=== PATIENT | male | born 1945 | race Caucasian/White ===

== ENCOUNTER → 2019-09-16 | Day surgery (SDC) | payer MEDICARE, OTHER ==
[2019-09-12 12:42] LABS: BASOPHILS % 0.4 % (0.0-1.0); EOSINOPHILS # (AUTO) 0.2 (0.0-0.4); EOSINOPHILS % 2.9 % (0.0-6.0); HEMATOCRIT 45.5 % (38.2-49.6); HEMOGLOBIN 14.8 g/dL (14.0-18.0); LYMPHOCYTES # (AUTO) 1.5 (1.0-3.2); LYMPHOCYTES % 21.8 % (18.0-39.1); MEAN CORPUSCULAR HEMOGLOBIN 30.3 pg (28-32); MEAN CORPUSCULAR HGB CONC 32.5 g/dL (31-35); MONOCYTES # (AUTO) 0.6 (0.2-0.8); MONOCYTES % 7.9 % (4.4-11.3); NEUTROPHILS # (AUTO) 4.7 (2.1-6.9); NEUTROPHILS % 66.7 % (38.7-80.0); PLATELET COUNT 210 x10e3/uL (140-360); RED BLOOD COUNT 4.89 x10e6/uL (4.3-5.7); RED CELL DISTRIBUTION WIDTH 12.1 % (11.7-14.4)
[2019-09-12 13:07] LABS: ALBUMIN 4.6 g/dL (3.5-5.0); ALBUMIN/GLOBULIN RATIO 1.7 (0.8-2.0); ANION GAP 11.6 mmol/L (8-16); CREATININE, SERUM 1.26 mg/dL (0.72-1.25); POTASSIUM 4.6 mmol/L (3.5-5.1)
--- NOTE | 2019-09-13 17:51 | NUR ---
3657p Phone interview completed.Pt denies any symptoms of CoviD aware of self quarantine till procedural date. To arrive at 1100AM on 15 September. Covid results still pending. 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 ds/rn
[2019-09-16] VITALS (13 sets, daily range): BP systolic 102–167; BP diastolic 57–78
[~2019-09-16] VITALS: Ht 177.8 cm; Wt 96.6 kg
[~2019-09-16] MED LIST: ALPRAZOLAM 0.5 MG TAB ONE; ASPIRIN 325 MG TAB ONE; ATENOLOL50 MG PO; BIVALRIUDIN 250 MG/VIAL VIAL IV ONE; DIPHENHYDRAMINE HCL 25 MG CAP ONE; FENTANYL CITRATE/PF 100MCG/2 ML INJ ONE; HEPARIN SOD (PORCINE) 1000 UNIT/ML 30ML ONE; HEPARIN SOD/SOD CHLORIDE 2,000 ML ONE; IOPAMIDOL 370 MG/ML 200 ML INFUS..BTL INJ ONE; LIDOCAINE HCL 2% LOCAL 20 ML VIAL ONE; LISINOPRIL5 MG; MIDAZOLAM HCL 2 MG/2 ML VIAL ONE; NITROGLYCERIN/D5W 200 MCG/ML 250 ML ONE; PRASUGREL 10 MG TAB ONE; SIMVASTATIN20 MG PO; SODIUM CHLORIDE 0.9% 1000ML 1,000 ML ONE; SODIUM CHLORIDE 0.9% 50ML 50 ML ONE; SYNTHROID25 MCG PO; VERAPAMIL HCL 2.5 MG/ML 2 ML VIAL ONE; XARELTO20 MG PO
--- NOTE | 2019-09-16 11:20 | NUR ---
1120a in CCL#9,Identiferx2, prepped for procedure. Alert oriented and appropriate, PERRLA, respirations even and unlabored to room air. Pulses x4 extremities equal . Pedal pulses PT/DP present/palpable and marked. Cap fill brisk < 3 sec. bilateral feet semi cool and pale. LHC for abnormal Stress Test. Skin warm and dry integrity appears intact in general. IV left hand #20 x1,started and presents healthy w/o s/s of infiltration or complaint. NS 0.9% started at 100ml/hr per dial flow. Abdomen soft and supple. pt offered toileting, denies need to urinate or defecate. Personal affects with patient. Family at bedside. Teressa. Pt and family verbalizes understanding of POC.Prepped and ready. Stable vs No Cp or SOB. Handoff to Osvaldo RN Denies c/o ds/rn
--- NOTE | 2019-09-16 11:57 | NUR ---
1140a preop given pt aware to ask for assistance bed in low position,call light at bs at bedside ds/rn
--- NOTE | 2019-09-16 13:45 | NUR ---
1345pm RECEIVING NOTE [facility]............................................................... Bedside report received from Keo BRADLEY. Identifierx2. Alert oriented and appropriate, PERRLA, respirations even and unlabored to room air. Pulses x4 extremities equal and strong. Pedal pulses PT/DP X4 and marked. Cap fill brisk < 3 sec. Rt Tr band intact NO gross issues pain pallor pressure or dysrhythmia. Skin warm and dry integrity appears D/I. IV 20g to left hand at 100cchr via controller, presents healthy w/o s/s of infiltration or complaint. Abdomen soft and supple. pt offered toileting, denies need to urinate or defecate. No personal affects with patient. Family at bedside. Pt and family verbalizes understanding of POC. TR band down at 1630 and dc home at 1800pm with occupance. Currently w/o complaint of pain or need. ds/aubrie
--- NOTE | 2019-09-16 16:30 | NUR ---
1630p RADIAL Compression removal: Initial Cuff volume 12 cc 1630p -2cc Removed No hematoma/bleeding noted with normal neurovascular function. 1645p -5cc Removed No hematoma/ bleeding noted with normal neurovascular function. 1700p -5cc Removed No hematoma/bleeding noted with normal neurovascular function. Air removal completed. Stasis achieved sterile 2x2,Tegaderm, Coban dressing No hematoma, bleeding noted with normal neurovascular function. Wrist splint in place. Pt instructed on POC. Ds/Rn
--- NOTE | 2019-09-16 18:00 | NUR ---
1800p Pt meets DC criteria. Rt arm assessed for s/s of complication and presence of hematoma. Skin warm, dry, no discolor, and pulses present. IV removed from left hand. Distal tip appears intact. VS WNL. Pt denies pain, sob, or need at this time. Family at bedside. Review of discharge paperwork and follow up instructions. verbalized understanding. Pt to wheelchair and transported to front of hospital. Transferred to private vehicle under own strength w/o incident with DC paperwork in hand. - ds/rn
--- NOTE | 2019-09-16 18:45 | Operative Report ---
DATE OF PROCEDURE: 09/16/2019 SURGEON: Pradip Chadwick MD INDICATIONS: Coronary artery disease, angina, and abnormal stress test. PROCEDURES PERFORMED: 1. Left heart catheterization, selective coronary angiography. 2. Ultrasound-guided access in the right radial artery. 3. Deployment of right wrist TR band. 4. Conscious sedation, 65 minutes. 5. Stent placement to the mid right coronary artery. COMPLICATIONS: None. BLOOD LOSS: Minimal. RECOMMENDATIONS: Staged intervention of the left anterior descending artery. DESCRIPTION OF PROCEDURE: Access obtained in the right radial artery. Using ultrasound guidance, a 6-Brazilian sheath was placed. The patient received intravenous Angiomax, oral prasugrel, and aspirin for anticoagulation. Left main, no disease. Left anterior descending artery, mid 70% stenosis. Circumflex, mild disease. Right coronary artery, mid 90%, distal 50%. LV end-diastolic pressure was normal. A decision was made to intervene on the right coronary artery. The right coronary artery is cannulated using a JR4 6-Brazilian guiding catheter. Short Runthrough wire was advanced for support. Primary stent 2.75 x 16 mm Synergy stent deployed at 18 atmospheres, excellent end result, less than 10% residual stenosis, ADRIEL 3 flow. No complications. Wire and guide sheath removed. TR band applied. The patient discharged home the same day. Pradip Chadwick MD K[facility]/MODL /[id number]
== END | disposition home or self-care (01) ==
LOC: CATH LAB 10:40
PROVIDERS: ATTEND Internal Medicine Interventional Cardiology
DX: I20.8 Other forms of angina pectoris (principal); I48.0 Paroxysmal atrial fibrillation; Z79.01 Long term (current) use of anticoagulants; E78.5 Hyperlipidemia, unspecified; I10 Essential (primary) hypertension; I83.93 Asymptomatic varicose veins of bilateral lower extremities; Z11.59 Encounter for screening for other viral diseases
CPT/HCPCS: 76937; 93454; C9600; 36415; 80053; 85025; 92928; 99152; 99153; C1769; C1874; C1887; J0583; J1644; J2001; J2250; J3010; J7030; Q9967; U0002

== ENCOUNTER 2024-01-11 07:06 | Emergency (ER) | payer MEDICARE ==
[~2024-01-11] VITALS: Ht 177.8 cm; Wt 96.6 kg
[~2024-01-11 07:06] MED LIST changes: -ALPRAZOLAM 0.5 MG TAB ONE; -ASPIRIN 325 MG TAB ONE; -BIVALRIUDIN 250 MG/VIAL VIAL IV ONE; -DIPHENHYDRAMINE HCL 25 MG CAP ONE; -FENTANYL CITRATE/PF 100MCG/2 ML INJ ONE; -HEPARIN SOD (PORCINE) 1000 UNIT/ML 30ML ONE; -HEPARIN SOD/SOD CHLORIDE 2,000 ML ONE; -IOPAMIDOL 370 MG/ML 200 ML INFUS..BTL INJ ONE; -LIDOCAINE HCL 2% LOCAL 20 ML VIAL ONE; -MIDAZOLAM HCL 2 MG/2 ML VIAL ONE; -NITROGLYCERIN/D5W 200 MCG/ML 250 ML ONE; -PRASUGREL 10 MG TAB ONE; -SODIUM CHLORIDE 0.9% 1000ML 1,000 ML ONE; -SODIUM CHLORIDE 0.9% 50ML 50 ML ONE; -VERAPAMIL HCL 2.5 MG/ML 2 ML VIAL ONE
[2024-01-11] MEDS: CYCLOBENZAPRINE HCL 10 MG TAB PO ONE (08:11)
[2024-01-11] MEDS: IBUPROFEN 600 MG TAB PO STA (08:11)
[2024-01-11 08:14] VITALS: PULSE 95; RESP 18; TEMP 97.5; O2SAT 99
[2024-01-11] MEDS ORDERED: CYCLOBENZAPRINE10 MG PO (08:22)
== END 2024-01-11 08:30 | disposition home or self-care (01) ==
LOC: ER 07:31
DX: M51.16 Intervertebral disc disorders with radiculopathy, lumbar region (principal); E78.00 Pure hypercholesterolemia, unspecified
CPT/HCPCS: 72131; 99283

== ENCOUNTER 2024-02-04 05:28 | Observation (INO) | payer MEDICARE ==
[2024-02-02 12:30] LABS: BASOPHILS % 0.4 % (0.0-1.0); EOSINOPHILS # (AUTO) 0.3 (0.0-0.4); EOSINOPHILS % 3.8 % (0.0-6.0); HEMATOCRIT 44.1 % (38.2-49.6); HEMOGLOBIN 14.1 g/dL (14.0-18.0); LYMPHOCYTES # (AUTO) 1.6 (1.0-3.2); LYMPHOCYTES % 20.6 % (18.0-39.1); MEAN CORPUSCULAR VOLUME 96.9 fL (81-99); MONOCYTES # (AUTO) 0.6 (0.2-0.8); MONOCYTES % 7.2 % (4.4-11.3); NEUTROPHILS # (AUTO) 5.3 (2.1-6.9); NEUTROPHILS % 67.7 % (38.7-80.0); PLATELET COUNT 216 x10e3/uL (140-360); RED BLOOD COUNT 4.55 x10e6/uL (4.3-5.7); WHITE BLOOD COUNT 7.83 x10e3/uL (4.8-10.8)
[2024-02-02 12:45] LABS: INR 1.39; PROTHROMBIN TIME 17.8 seconds (11.9-14.5)
[2024-02-02 12:46] LABS: PARTIAL THROMBOPLASTIN TIME 45.8 seconds (23.8-35.5)
[2024-02-02 12:52] LABS: CALCIUM 10.3 mg/dL (8.4-10.2); CREATININE, SERUM 1.22 mg/dL (0.72-1.25)
[2024-02-03 10:37] LABS: INR 0.98; PROTHROMBIN TIME 13.6 seconds (11.9-14.5)
[2024-02-03 10:38] LABS: PARTIAL THROMBOPLASTIN TIME 26.9 seconds (23.8-35.5)
[~2024-02-04] VITALS: Ht 177.8 cm; Wt 97.5 kg
[~2024-02-04 05:28] MED LIST changes: +ASPIRIN81 MG PO; +CYCLOBENZAPRINE10 MG PO; +IBUPROFEN600 MG PO; +LIPITOR10 MG PO; +METFORMIN HCL500 MG PO; +METOPROLOL SUCC25 MG PO; +MULTI-VITAMIN1 EACH PO
[2024-02-04] MEDS: LACTATED RINGER'S 1,000 ML ONE (06:08)
[2024-02-04] MEDS: CEFAZOLIN SODIUM 2 GM ONE (06:08)
[2024-02-04] MEDS ORDERED: LIDOCAINE HCL 2% LOCAL INJ 5 ML SDV VIAL INJ ONE (07:09)
[2024-02-04] MEDS ORDERED: FENTANYL CITRATE/PF 100MCG/2 ML INJ ONE (07:09)
[2024-02-04] MEDS ORDERED: ROCURONIUM BROMIDE 1 ML IV ONE (07:09)
[2024-02-04] MEDS ORDERED: KETAMINE 50MG/5ML SYR ONE (07:10)
[2024-02-04] MEDS ORDERED: SEVOFLURANE INHAL SOLN 250 ML PEN BTL ONE (07:10)
[2024-02-04] MEDS ORDERED: PROPOFOL IV EMULSION 10 MG/ML 20 ML VIAL ONE (07:10)
[2024-02-04] MEDS ORDERED: ACETAMINOPHEN 1000 MG/100 ML 100 ML IV ONE (07:10)
[2024-02-04] MEDS ORDERED: DEXAMETHASONE SOD PHOS INJ 4 MG/ML SDV ONE (08:26)
[2024-02-04] MEDS ORDERED: ONDANSETRON HCL INJ 2MG/ML 2ML 2 MG/ML VIAL ONE (08:26)
[2024-02-04] MEDS ORDERED: SUGAMMADEX SODIUM 200 MG/2 ML VIAL IV ONE (08:48)
[2024-02-04] MEDS ORDERED: LACTATED RINGER'S 1,000 ML ONE (09:08)
[2024-02-04] MEDS ORDERED: PHENYLEPHRINE HCL 1% 10 MG/ML VIAL ONE (09:09)
[2024-02-04] MEDS ORDERED: SODIUM CHLORIDE 0.9% 100 ML ONE (09:10)
[2024-02-04] MEDS ORDERED: HYDROCODON-ACE1 EA12 PO (09:57)
[2024-02-04] MEDS ORDERED: PROMETHAZINE HCL (IM) 25 MG/ML VIAL IM PRN (10:00)
[2024-02-04] MEDS ORDERED: ONDANSETRON HCL INJ 2MG/ML 2ML 2 MG/ML VIAL IV PRN (10:00)
[2024-02-04] MEDS ORDERED: HYDROMORPHONE 2MG/ML IV PRN (10:00)
[2024-02-04] MEDS: FENTANYL CITRATE/PF 100MCG/2 ML INJ ONE (10:00)
[2024-02-04] MEDS ORDERED: MORPHINE SULFATE 5 MG/ML VIAL IM PRN (10:00)
[2024-02-04] MEDS ORDERED: ACETAMINOPHEN 325 MG TAB PO PRN (10:00)
[2024-02-04] MEDS ORDERED: CARISOPRODOL 350 MG TAB PO PRN (10:00)
[2024-02-04] MEDS ORDERED: MAGNESIUM/ALUMINUM/SIMETHICONE 30 ML UDC PO PRN (10:00)
[2024-02-04] MEDS: HYDROMORPHONE 1MG/1ML INJ ONE (10:11)
[2024-02-04 11:20] VITALS: BP 152/83; PULSE 88; RESP 18; TEMP 98.2; O2SAT 97
[2024-02-04] MEDS: OXYCODONE/ACETAMINOPHEN 5-325 1 EACH TABLET PO PRN (11:52)
[2024-02-04] MEDS: LACTATED RINGER'S 1,000 ML IV SCH (11:52)
[2024-02-04 15:10] VITALS: BP 153/86; PULSE 108; RESP 19; TEMP 98.2; O2SAT 96
[2024-02-04] MEDS: IBUPROFEN 600 MG TAB PO SCH (16:07)
[2024-02-04] MEDS: METFORMIN HCL 500 MG TAB PO SCH (16:07)
[2024-02-04] MEDS: ATORVASTATIN 40 MG TAB PO SCH (20:50)
[2024-02-04] MEDS: CYCLOBENZAPRINE HCL 10 MG TAB PO PRN (20:55)
[2024-02-04] MEDS: ZOLPIDEM TARTRATE 5 MG TAB PO PRN (23:42)
[2024-02-05] MEDS: LEVOTHYROXINE SODIUM 25 MCG TABLET PO SCH (06:11)
[2024-02-05 08:00] VITALS: BP 146/77; PULSE 101; RESP 17; TEMP 97.6; O2SAT 98
[2024-02-05] MEDS ORDERED: ONDANSETRON HCL 4 MG ORAL DISINTEGRATING TAB PO PRN (08:15)
[2024-02-05] MEDS: MULTIVITAMINS/MINERALS TAB PO SCH (09:16)
[2024-02-05 09:17] VITALS: BP 146/77; PULSE 101
[2024-02-05] MEDS: METOPROLOL SUCCINATE 25 MG TAB XL PO SCH (09:17)
== END 2024-02-05 10:17 | disposition home or self-care (01) ==
LOC: OR 05:28 → PACU V 09:56 → MED/SURG 11:05
PROVIDERS: ADMIT Neurological Surgery; ATTEND Neurological Surgery
DX: M48.062 Spinal stenosis, lumbar region with neurogenic claudication (principal); I10 Essential (primary) hypertension; E78.5 Hyperlipidemia, unspecified; I25.10 Atherosclerotic heart disease of native coronary artery without angina pectoris; Z95.5 Presence of coronary angioplasty implant and graft; I48.91 Unspecified atrial fibrillation; E03.9 Hypothyroidism, unspecified; R73.03 Prediabetes; Z79.84 Long term (current) use of oral hypoglycemic drugs; Z01.810 Encounter for preprocedural cardiovascular examination; Z01.812 Encounter for preprocedural laboratory examination; Z01.818 Encounter for other preprocedural examination; Z79.899 Other long term (current) drug therapy; Z79.82 Long term (current) use of aspirin
CPT/HCPCS: 36415 ×2; 63047; 63048; 71046; 72020; 80048; 82947; 85025; 85610 ×2; 85730 ×2; 86850; 86900; 88304; 88311; 93005; 97161; G0378 ×2; J0131; J0690 ×2; J1100; J1171; J2003; J2371; J2405; J2704; J3010; J7050; J7121